=== PATIENT | male | born 1990 | race American Indian/Alaskan Native ===

== ENCOUNTER 2018-03-11 04:38 | Emergency (ER) | payer OTHER ==
[2018-03-11 04:54] VITALS: BMI 24.9
[2018-03-11 05:12] VITALS: BP 122/79; TEMP 98.5
--- NOTE | 2018-03-11 05:31 | ED PDOC ---
Arrival/HPI - General Chief Complaint: Lower Extremity Problem/Injury Time Seen by Provider: 03/11/18 04:59 Historian: Patient - History of Present Illness Narrative History of Present Illness (Text): 03/11/18 05:31 Lewis Davenport is a 27 year old male who presents to the Emergency department complaining of left ankle pain status post injury at work. Patient states a co- worker accidentally rolled a power delvin on to his left ankle/foot while at work prior to arrival. Patient sustained a laceration to his left lateral ankle and is experiencing pain with swelling to the area. Patient denies any weakness/ numbness/tingling in the extremity, other trauma/injury, or any other complaints. Time/Duration: Prior to Arrival Symptom Onset: Sudden Symptom Course: Unchanged Activities at Onset: Light Context: Work Past Medical History - Provider Review Nursing Documentation Reviewed: Yes - Cardiac Hx Cardiac Disorders: Yes - Pulmonary Hx Asthma: Yes - Neurological Hx Neurological Disorder: No - Psychiatric Hx Substance Use: No Family/Social History - Physician Review Nursing Documentation Reviewed: Yes Family/Social History: Unknown Family HX Smoking Status: Never Smoked Hx Alcohol Use: Yes Hx Substance Use: No Allergies/Home Meds Allergies/Adverse Reactions: Allergies shellfish derived Allergy (Verified 03/11/18 04:55) RASH Review of Systems - Physician Review All systems were reviewed & negative as marked: Yes - Review of Systems Constitutional: Normal. absent: Fevers Eyes: Normal ENT: Normal Respiratory: Normal. absent: SOB, Cough Cardiovascular: Normal. absent: Chest Pain Gastrointestinal: Normal. absent: Abdominal Pain, Diarrhea, Nausea, Vomiting Genitourinary Male: Normal. absent: Dysuria, Frequency, Hematuria, Urinary Output Changes Musculoskeletal: Arthralgias. absent: Back Pain, Neck Pain Skin: Laceration Neurological: Normal. absent: Headache, Dizziness Endocrine: Normal Hemo/Lymphatic: Normal Psychiatric: Normal Physical Exam Vital Signs Reviewed: Yes Vital Signs Temp Pulse Resp BP Pulse Ox 03/11/18 07:20 91 H 18 99 03/11/18 05:11 98.5 F 71 16 122/79 98 Temperature: Afebrile Blood Pressure: Normal Pulse: Regular Respiratory Rate: Normal Appearance: Positive for: Well-Appearing, Non-Toxic, Comfortable Pain Distress: None Mental Status: Positive for: Alert and Oriented X 3 - Systems Exam Head: Present: Atraumatic, Normocephalic Pupils: Present: PERRL Extroacular Muscles: Present: EOMI Conjunctiva: Present: Normal Mouth: Present: Moist Mucous Membranes Neck: Present: Normal Range of Motion Respiratory/Chest: Present: Clear to Auscultation, Good Air Exchange. No: Respiratory Distress, Accessory Muscle Use Cardiovascular: Present: Regular Rate and Rhythm, Normal S1, S2. No: Murmurs Abdomen: No: Tenderness, Distention, Peritoneal Signs Back: Present: Normal Inspection Upper Extremity: Present: Normal Inspection. No: Cyanosis, Edema Lower Extremity: Present: NORMAL PULSES, Normal ROM, Tenderness (Pain on flexion and extension of left foot), Swelling (Swelling to left lateral malleolus), Neurovascularly Intact, Capillary Refill < 2 s, Other (3 cm laceration to area of left lateral malleolus region. Negative Martin test). No: Edema, CALF TENDERNESS, Cyanosis, Erythema, Deformity, Temperature Abnormalties Neurological: Present: GCS=15, CN II-XII Intact, Speech Normal Skin: Present: Warm, Dry, Normal Color. No: Rashes Psychiatric: Present: Alert, Oriented x 3, Normal Insight, Normal Concentration Medical Decision Making ED Course and Treatment: 03/11/18 05:31 Impression: 27 year old male complaining of left ankle pain/swelling and left ankle laceration s/p injury at work prior to arrival. Plan: -- XR Left Ankle -- TDAP -- Reassess and disposition Progress Notes: - RAD Interpretation Radiology Orders: 03/11/18 05:31 ANKLE LEFT 3 VIEWS ROUTINE [RAD] Stat 03/11/18 06:05 FOOT LEFT 3 VIEWS ROUTINE [RAD] Stat - Medication Orders Current Medication Orders: Discontinued Medications Oxycodone/Acetaminophen (Percocet 5/325 Mg Tab) 1 tab PO STAT STA Stop: 03/11/18 05:50 Last Admin: 03/11/18 06:04 Dose: 1 tab MAR Pain Assessment Document 03/11/18 06:04 SS (Rec: 03/11/18 06:05 SS [id number]) Pain Reassessment Is this a pain reassessment? No Presence of Pain Presence of Pain Yes Pain Scale Used Pain Scale Used Numeric Location Left, Right or Bilateral Left Pain Location Body Site Ankle Foot Description Description Constant Pain Behavior Facial Grimacing Tetanus/Reduced Diphtheria/Acell Pertussis (Boostrix Vaccine Inj) 0.5 ml IM .ONCE ONE Stop: 03/11/18 05:39 Last Admin: 03/11/18 07:06 Dose: Procedure: Wound Repair - Time Performed Time Performed: 06:00 - Time Out Time Out: Site verified, Patient ID confirmed, Sterile procedures obs. - Consent Obtained Consent obtained: Verbal - Performed by Performed by: Attending Physician - Indications Indication(s):: Laceration - Location Location:: Ankle Shape:: Curvilinear Dimensions Length cm: 3 Depth:: Epidermis - Anesthetic Technique Anesthetic Technique: Local Local/Regional Anesthetic:: Lidocaine 1% - Debris Debris:: None - Irrigated Irrigated with ml of normal saline: 500 - Complexity Complexity:: Simple (one layer) - Wound repair method Sutures:: # (7), Size (4.0), Type (nylon), Technique (interrupted) [place]:: Steri-strips - Patient tolerated procedure Patient Tolerated Procedure:: Well - Scribe Statement The provider has reviewed the documentation as recorded by the Nanda Farley Provider Scribe Attestation: All medical record entries made by the Scribe were at my direction and personally dictated by me. I have reviewed the chart and agree that the record accurately reflects my personal performance of the history, physical exam, medical decision making, and the department course for this patient. I have also personally directed, reviewed, and agree with the discharge instructions and disposition. Disposition/Present on Arrival - Present on Arrival Any Indicators Present on Arrival: No History of DVT/PE: No History of Uncontrolled Diabetes: No Urinary Catheter: No History of Decub. Ulcer: No History Surgical Site Infection Following: None - Disposition Have Diagnosis and Disposition been Completed?: Yes Diagnosis: Ankle sprain, Skin laceration Disposition: HOME/ ROUTINE Disposition Time: 07:05 Patient Plan: Discharge Condition: GOOD Discharge Instructions (ExitCare): Ankle Sprain (DC), Laceration Repair With Stitches (DC) Additional Instructions: Keep affected area elevated when possible/no weight bearing/use crutches/keep wound clean and dry/may apply bacitracin twice daily/follow up with the orthopedist this week/sutures need to be removed in 10-14 days by your doctor or return to emergency room Prescriptions: Bacitracin Ointment [Bacitracin] 30 gm TOP BID #30 tube Tramadol HCl [Ultram] 50 mg PO Q6 PRN #12 tab PRN Reason: Pain, Moderate (4-7) Referrals: Chuckie Mary MD [Staff Provider] - Follow up with primary Forms: [employer] (Tongan), WORK NOTE
[2018-03-11] MEDS ORDERED: TDAP Vaccine 0.5 mL Syr IM ONE (05:38)
[2018-03-11] MEDS ORDERED: Oxycodone/Acetaminophen 5/325 mg Tab PO STA (05:49)
[2018-03-11] MEDS ORDERED: Lidocaine 1% Inj (20ml) ONE (06:31)
--- NOTE | 2018-03-11 06:50 | RAD ---
EXAM: XR Left Ankle Complete, 3 or More Views CLINICAL HISTORY: 27 years old, male; Injury or trauma; Fall; Initial encounter; Laceration; Ankle; Left; Foreign body involvement not specified TECHNIQUE: Frontal, lateral and oblique views of the left ankle. COMPARISON: No relevant prior studies available. FINDINGS: Bones/joints: The ankle mortise is intact. No acute fracture. No dislocation. Soft tissues: There is soft tissue defect overlying the lateral malleolus which can represent laceration versus ulceration. No significant soft tissue swelling. IMPRESSION: There is soft tissue defect overlying the lateral malleolus which can represent laceration versus ulceration.
--- NOTE | 2018-03-11 06:52 | RAD ---
EXAM: XR Left Foot Complete, 3 or More Views CLINICAL HISTORY: 27 years old, male; Injury or trauma; Fall; Initial encounter; Laceration; Ankle; Left; Foreign body involvement not specified TECHNIQUE: Frontal, lateral and oblique views of the left foot. COMPARISON: DX - ANKLE LEFT 3 VIEWS ROUTINE 2018-03-11 05:44 FINDINGS: Bones/joints: There is ossific density near the medial aspect of the navicular bone. No acute fracture. No dislocation. Soft tissues: Unremarkable. No radiopaque foreign body. IMPRESSION: No acute findings.
[2018-03-11] MEDS ORDERED: Bacitracin 500 Units/gm Oint Foilpak UD ONE (06:53)
[2018-03-11 07:29] VITALS: PULSE 91; RESP 18; O2SAT 99
== END 2018-03-11 07:32 | disposition home or self-care (01) ==
LOC: ED 04:38
DX: S91.012A Laceration without foreign body, left ankle, initial encounter (principal); S93.402A Sprain of unspecified ligament of left ankle, initial encounter; W31.89XA Contact with other specified machinery, initial encounter; Y99.0 Civilian activity done for income or pay